=== PATIENT | female | born 1930 | race Caucasian/White ===

== ENCOUNTER 2017-01-06 09:42 | Inpatient (IN) | payer OTHER ==
[~2017-01-06] VITALS: Ht 157.5 cm; Wt 51.1 kg
[~2017-01-06 09:42] MED LIST: ACET-1156 PO; ATOR40TA52 PO; Apixaban Base PO; CITA-73 PO; LORA-655 PO; METO50TA7 PO; PROC25SU24 RE
[2017-01-06] MEDS ORDERED: SODIUM CHLORIDE 0.9% 500 ML IV ONE ×2 (10:03→13:45)
[2017-01-06] MEDS ORDERED: DONE10TA37 PO (10:33)
[2017-01-06] MEDS ORDERED: TEMA15CA91 PO (10:33)
[2017-01-06] MEDS ORDERED: POTA10TA34 PO (10:33)
[2017-01-06] MEDS ORDERED: ACE500T PO (10:34)
[2017-01-06] MEDS ORDERED: MIRT1TAB PO (10:34)
[2017-01-06 10:41] LABS: DEFINITIVE VIEW TRANSMISSION; Hemoglobin 10.1 g/dL (12.2-16.2); Mean Corpuscular Hemoglobin 30.7 pg (28.0-32.0); Mean Corpuscular Hgb Conc. 34.9 g/dL (32.0-36.0); Mean Platelet Volume 9.8 fL (7.4-10.4); Platelet Count (auto) 55 10^3/uL (140-450); Red Cell Distribution Width 17.8 % (11.6-16.0); SUSPECT VIEW TRANSMISSION
[2017-01-06 11:13] LABS: BUN/Creatinine Ratio 11.3; Calcium 8.6 mg/dL (8.5-10.1); Potassium 4.8 mmol/L (3.5-5.1)
[2017-01-06 11:37] LABS: White Blood Cell 171.6 10^3/uL (4.4-10.8)
[2017-01-06 11:39] LABS: Promyelocytes % 0; Reactive Lymphocytes 0
[2017-01-06 12:42] LABS: Urine Bilirubin Negative (Negative); Urine Color Yellow (Yellow); Urine Glucose Normal (Normal); Urine Ketone Negative (Negative); Urine Mucus FEW (None Seen); Urine Nitrite Negative (Negative); Urine RBC 97 /hpf (0 - 4); Urine Squamous Epithelial Cell FEW /hpf (<5); Urine Urobilinogen Normal (Negative); Urine WBC Clumps PRESENT /hpf (None Seen); Urine pH 6.5 (5.0-8.0)
[2017-01-06 12:43] LABS: Urine Blood 2+ /uL (Negative)
[2017-01-06] MEDS ORDERED: DEXTROSE (50%) 50ML SYRG IV PRN (13:15)
[2017-01-06] MEDS ORDERED: cefTRIAXone 1GM/50ML D5W 50 ML IV ONE (13:15)
[2017-01-06] MEDS ORDERED: TEMAZEPAM 15 MG CAP PO PRN (13:30)
[2017-01-06] MEDS ORDERED: LORazepam 0.5 MG TAB PO PRN (13:30)
[2017-01-06] MEDS ORDERED: NITROGLYCERIN 0.4 MG SL TAB SL PRN (13:30)
[2017-01-06] MEDS ORDERED: MORPHINE SULF INJ 2 MG/ML SYRINGE 1ML IV PRN ×2 (13:30)
[2017-01-06] MEDS ORDERED: DOCUSATE SOD 100 MG CAP PO PRN (13:30)
[2017-01-06] MEDS ORDERED: ACETAMINOPHEN 325 MG TAB PO PRN (13:30)
[2017-01-06] MEDS ORDERED: LEVOFLOXACIN 500MG 100 ML IV ONE (13:45)
[2017-01-06] MEDS ORDERED: ZINC SULFATE 220 MG CAP PO ONE (13:45)
[2017-01-06] MEDS ORDERED: MULTIPLE VITAMIN TAB PO ONE (13:45)
[2017-01-06 13:56] LABS: Metamyelocytes % 4; Myelocytes % 28
[2017-01-06 13:57] LABS: Platelet Estimate Decreased
[2017-01-06] MEDS: SODIUM CHLOR 0.9% PF (SALINE LOCK) 10ML VIAL IV SCH ×2 (14:08→21:59)
[2017-01-06 14:53] LABS: Lactic Acid w/Reflex 2.6 mmol/L (0.4-2.0)
[2017-01-06 14:57] LABS: REFLEX LACTIC ACID YES OR NO YES
[2017-01-06] MEDS: InsuLIN REG 1unit/0.01ml Soln (100units/ml) SC SCH ×2 (17:00→22:00)
[2017-01-06] MEDS: ACCU-CHEK COMFORT CURVE STRIP VI SCH ×2 (17:13→22:10)
[2017-01-06] MEDS: ONDANSETRON HCL 4 MG/2 ML VIAL IV PRN ×2 (19:20→19:56)
[2017-01-06] MEDS: DONEPEZIL HYDROCHLORIDE 5 MG TAB PO SCH (21:57)
[2017-01-06] MEDS: ATORVASTATIN 20 MG TAB PO SCH (21:58)
[2017-01-06] MEDS: MIRTAZAPINE 30 MG TAB PO SCH (21:59)
[2017-01-06] MEDS ORDERED: APIXABAN 2.5 MG TAB PO SCH (22:00)
[2017-01-06] MEDS ORDERED: FAMOTIDINE 20 MG TAB PO SCH (22:00)
[2017-01-06] MEDS: ASCORBIC ACID 500 MG TAB PO SCH (22:00)
[2017-01-06] MEDS: APIXABAN 2.5 MG TAB PO SCH (22:10)
[2017-01-06 23:10] VITALS: BP 103/45
[2017-01-07] VITALS (7 sets, daily range): BP systolic 94–109; BP diastolic 40–60
[2017-01-07] MEDS: HYDROcodone-ACET 5/325MG TAB PO PRN ×2 (00:56→09:46)
[2017-01-07 05:48] LABS: DEFINITIVE VIEW TRANSMISSION; Hematocrit 24.9 % (36.0-46.0); Mean Corpuscular Hemoglobin 31.9 pg (28.0-32.0); Mean Corpuscular Hgb Conc. 36.1 g/dL (32.0-36.0); Mean Corpuscular Volume 88.4 fL (80.0-100.0); Platelet Count (auto) 55 10^3/uL (140-450); Red Cell Distribution Width 17.6 % (11.6-16.0); SUSPECT VIEW TRANSMISSION
[2017-01-07 06:06] LABS: White Blood Cell 202.4 10^3/uL (4.4-10.8)
[2017-01-07 06:07] LABS: Albumin 2.8 g/dL (3.4-5.0); BUN/Creatinine Ratio 11.2; Calcium 7.6 mg/dL (8.5-10.1); Metamyelocytes % 0; Potassium 4.4 mmol/L (3.5-5.1); Promyelocytes % 0; Reactive Lymphocytes 0
[2017-01-07 06:10] LABS: Bilirubin, Total 0.4 mg/dL (0.2-1.0); Total Protein 5.7 g/dL (6.4-8.2)
[2017-01-07 06:32] LABS: Myelocytes % 1; Platelet Estimate Decreased
[2017-01-07 06:33] LABS: Anisocytosis Slight
[2017-01-07] MEDS: SODIUM CHLOR 0.9% PF (SALINE LOCK) 10ML VIAL IV SCH ×3 (06:49→22:00)
[2017-01-07] MEDS: ACCU-CHEK COMFORT CURVE STRIP VI SCH ×4 (06:49→22:00)
[2017-01-07] MEDS: InsuLIN REG 1unit/0.01ml Soln (100units/ml) SC SCH ×4 (06:50→22:00)
[2017-01-07] MEDS ORDERED: cefTRIAXone 1GM/50ML D5W 50 ML IV SCH (09:00)
[2017-01-07] MEDS: APIXABAN 2.5 MG TAB PO SCH ×2 (09:45→22:52)
[2017-01-07] MEDS: ASCORBIC ACID 500 MG TAB PO SCH ×2 (09:46→22:52)
[2017-01-07] MEDS ORDERED: APIXABAN 2.5 MG TAB PO SCH (10:00)
[2017-01-07] MEDS ORDERED: FAMOTIDINE 20 MG TAB PO SCH (10:00)
[2017-01-07] MEDS ORDERED: METOPROLOL SUCCINATE XL 50 MG TAB PO SCH (10:00)
[2017-01-07] MEDS ORDERED: CITALOPRAM HYDROBR 20 MG TAB PO SCH (10:00)
[2017-01-07] MEDS ORDERED: POTASSIUM CHL 10 Meq TABLET PO SCH (10:00)
[2017-01-07] MEDS ORDERED: ZINC SULFATE 220 MG CAP PO SCH (10:00)
[2017-01-07] MEDS ORDERED: MULTIPLE VITAMIN TAB PO SCH (10:00)
[2017-01-07] MEDS ORDERED: ALLOPURINOL 100 MG TAB PO SCH (16:45)
[2017-01-07] MEDS ORDERED: D5W/SOD CHL 0.45% 1,000 ML IV SCH (17:45)
[2017-01-07 19:24] LABS: Phosphorus 2.6 mg/dL (2.5-4.90)
[2017-01-07] MEDS: HYDROXYUREA 500 MG CAP PO SCH (22:50)
[2017-01-07] MEDS: MIRTAZAPINE 30 MG TAB PO SCH (22:52)
[2017-01-07] MEDS: ATORVASTATIN 20 MG TAB PO SCH (22:52)
[2017-01-07] MEDS: DONEPEZIL HYDROCHLORIDE 5 MG TAB PO SCH (22:52)
[2017-01-08 04:59] VITALS: BP 107/61
[2017-01-08] MEDS: SODIUM CHLOR 0.9% PF (SALINE LOCK) 10ML VIAL IV SCH (06:00)
[2017-01-08] MEDS: HYDROXYUREA 500 MG CAP PO SCH (06:17)
[2017-01-08 06:21] LABS: Albumin 2.6 g/dL (3.4-5.0); BUN/Creatinine Ratio 11.7; Calcium 7.5 mg/dL (8.5-10.1)
[2017-01-08 06:24] LABS: Bilirubin, Total 0.5 mg/dL (0.2-1.0); Total Protein 5.5 g/dL (6.4-8.2)
[2017-01-08 06:49] LABS: Potassium 6.2 mmol/L (3.5-5.1)
[2017-01-08 07:03] LABS: DEFINITIVE VIEW TRANSMISSION; SUSPECT VIEW TRANSMISSION
[2017-01-08 08:46] LABS: Hematocrit 25.4 % (36.0-46.0); Mean Platelet Volume 8.8 fL (7.4-10.4)
[2017-01-08 08:48] LABS: Mean Corpuscular Hemoglobin 33.1 pg (28.0-32.0); Mean Corpuscular Hgb Conc. 35.5 g/dL (32.0-36.0); Mean Corpuscular Volume 93.3 fL (80.0-100.0); Platelet Count (auto) 97 10^3/uL (140-450)
[2017-01-08 08:51] LABS: Red Cell Distribution Width 20.5 % (11.6-16.0)
[2017-01-08 08:54] LABS: White Blood Cell 209.4 10^3/uL (4.4-10.8)
[2017-01-08 08:55] LABS: Metamyelocytes % 0; Promyelocytes % 0; Reactive Lymphocytes 0
[2017-01-08 08:56] LABS: Anisocytosis Slight; Myelocytes % 2; Platelet Estimate Decreased
[2017-01-08] MEDS ORDERED: ALLOPURINOL 300 MG TAB PO SCH (10:00)
[2017-01-11 13:06] LABS: Vitamin D 25-Hydroxy 32 ng/mL (.); Vitamin D-2 25-Hydroxy <1.0 ng/mL (.)
== END 2017-01-08 11:19 | disposition expired | DRG 834 ==
LOC: ER 09:42 → TELE 09:43 → TELE-WESTW 23:00
PROVIDERS: ADMIT Internal Medicine; ATTEND Family Medicine
DX: C95.00 Acute leukemia of unspecified cell type not having achieved remission (principal); G92 Toxic encephalopathy; N17.0 Acute kidney failure with tubular necrosis; N12 Tubulo-interstitial nephritis, not specified as acute or chronic; I48.92 Unspecified atrial flutter; E87.0 Hyperosmolality and hypernatremia; G30.9 Alzheimer's disease, unspecified; F02.80 Dementia in other diseases classified elsewhere, unspecified severity, without behavioral disturbance, psychotic disturbance, mood disturbance, and anxiety; I12.9 Hypertensive chronic kidney disease with stage 1 through stage 4 chronic kidney disease, or unspecified chronic kidney disease; N18.3 Chronic kidney disease, stage 3 (moderate); I48.91 Unspecified atrial fibrillation; E78.5 Hyperlipidemia, unspecified; E11.22 Type 2 diabetes mellitus with diabetic chronic kidney disease; E11.21 Type 2 diabetes mellitus with diabetic nephropathy; E78.00 Pure hypercholesterolemia, unspecified; D64.9 Anemia, unspecified; Z71.9 Counseling, unspecified
CPT/HCPCS: 36415; 71010; 76775; 80048; 80053; 81001; 82306; 82570; 82962; 83036; 83605; 83970; 84100; 84156; 84300; 84550; 85007; 85027; 87040; 87081; 87086; 93005; 96361; 96365; 96367; 96375; J0696; J1815; J1956; J2405